=== PATIENT | female | born 1950 | race Caucasian/White ===

== ENCOUNTER 2019-01-25 10:44 | Inpatient (IN) | payer OTHER ==
[~2019-01-25] VITALS: Ht 160 cm; Wt 63.5 kg
[2019-01-25 10:51] VITALS: Ht 160 cm; Wt 63.5 kg
[2019-01-25 11:20] LABS: microscopic required? NO
[2019-01-25 11:26] LABS: BASOPHIL % 0.4 % (0-2); PLATELET COUNT 321 x10^3mcL (130-400); RED CELL DISTRIBUTION WIDTH 13.7 % (11.5-14.5)
[2019-01-25 11:26] LABS: urine erythrocyte NEGATIVE (NEGATIVE)
[2019-01-25 11:34] LABS: CALCIUM 9.2 mg/dL (8.5-10.1); CARBON DIOXIDE 31.9 mmol/L (21-32); CHLORIDE SERUM 101 mmol/L (98-107); CREATININE SERUM 0.6 mg/dL (0.6-1.0); GFR1 > 60 mL/min; GLUCOSE SERUM 114 mg/dL (74-106); POTASSIUM SERUM 3.5 mmol/L (3.5-5.1); SODIUM SERUM 140 mmol/L (136-145)
[2019-01-25 11:34] LABS: AMPHETAMINE QUAL UR NONE DETECTED (See below)
[2019-01-25 11:38] LABS: ALBUMIN 3.9 g/dL (3.4-5.0); ALKALINE PHOSPHATASE 58 U/L (46-116); ALT/SGPT 36 U/L (14-59); AMYLASE 64 U/L (25-115); AST/SGOT 34 U/L (15-37); BILIRUBIN TOTAL 0.4 mg/dL (0.20-1.00); LIPASE 134 IU/L (73-393); TOTAL PROTEIN, SERUM 7.5 g/dL (6.4-8.2)
[2019-01-25] MEDS ORDERED: LIPI10 PO (16:07)
[2019-01-25] MEDS ORDERED: NATURAL LAXATI8.6 MG PO (16:10)
[2019-01-25 16:47] LABS: MAGNESIUM 1.6 mg/dL (1.8-2.4); PHOSPHOROUS 3.1 mg/dL (2.5-4.9)
[2019-01-25 16:48] LABS: CHOLESTEROL/HDL RATIO 1.9
[2019-01-25 16:55] LABS: T3 TOTAL 1.17 ng/mL
[2019-01-25 17:09] LABS: FREE T4 1.43 ng/dL (0.76-1.46); FREE THYROXINE INDEX 4.6 ug/dL (1.4-4.5); T4(THYROXINE) 11.4 ug/dL (4.7-13.3)
[2019-01-25 19:02] VITALS: BP 141/48
[2019-01-25 21:48] VITALS: BP 109/44
[2019-01-26 06:33] LABS: CALCIUM 8.5 mg/dL (8.5-10.1); CARBON DIOXIDE 28.9 mmol/L (21-32); CHLORIDE SERUM 102 mmol/L (98-107); CREATININE SERUM 0.6 mg/dL (0.6-1.0); GFR1 > 60 mL/min; GLUCOSE SERUM 89 mg/dL (74-106); MAGNESIUM 1.8 mg/dL (1.8-2.4); POTASSIUM SERUM 3.4 mmol/L (3.5-5.1); SODIUM SERUM 138 mmol/L (136-145)
[2019-01-26 06:36] VITALS: BP 135/61
[2019-01-26 06:47] LABS: BASOPHIL % 0.2 % (0-2); PLATELET COUNT 280 x10^3mcL (130-400)
[2019-01-26 08:28] VITALS: BP 106/52
[2019-01-26 13:03] VITALS: BP 108/49
[2019-01-26] MEDS ORDERED: LEVAQUIN750 MG PO (13:36)
[2019-01-26] MEDS ORDERED: LAC PO (13:36)
[2019-01-26] MEDS ORDERED: incentive spirometer (13:37)
[2019-01-26] MEDS ORDERED: LIDODERM51 TOP (13:38)
[2019-01-26] MEDS ORDERED: NATURAL LAXATI8.6 MG PO (14:52)
[2019-01-26 14:53] VITALS: BP 108/49
== END 2019-01-26 17:14 | disposition home or self-care (01) | DRG 392 ==
LOC: ED 10:44 → DU 16:13 → MU 16:13 → DU 01-26 00:05
PROVIDERS: Emergency Medicine; ADMIT Internal Medicine
DX: R10.32 Left lower quadrant pain (principal); E83.42 Hypomagnesemia; E78.5 Hyperlipidemia, unspecified; Z87.442 Personal history of urinary calculi; Z68.20 Body mass index [BMI] 20.0-20.9, adult; F17.210 Nicotine dependence, cigarettes, uncomplicated
CPT/HCPCS: 83880; 84439; 94150; J1885; J1956; J2060; J2270; J2405; J7030; J7620; Q0092; Q9967